=== PATIENT | male | born 1970 | race Two or more races ===

== ENCOUNTER 2016-07-15 18:21 | Emergency (ER) | payer OTHER ==
[2016-07-15 18:27] VITALS: BP 121/94; PULSE 99; TEMP 97.9; BMI 38.2
[2016-07-15] MEDS ORDERED: SODIUM CHLORIDE 1,000 ML IV STA (20:19)
--- NOTE | 2016-07-15 20:19 | PDOC ---
History of Present Illness - History of Present Illness Initial Comments: 07/15/16 21:26 The patient is a 46 year old male, with a significant past medical history of Type II Diabetes on metformin BID and Victoza (diagnosed in 2007) and herniated discs, who presents to the emergency department sent by PCP with cough, low- grade fever, laryngitis, and upper respiratory infection for a week. He states he was seen by Dr. Newell four days ago in the office and was treated with a Z- pack which he reports finishing today with little to no relief of symptoms. He also reports getting a call from Dr. Newell today about his lab results because his HgbA1C was noted to be 11. The patient states he eats what he likes and does not monitor his sugars. He denies chest pain, shortness of breath, headache and dizziness. He denies nausea, vomit, diarrhea, constipation. He denies dysuria, frequency, urgency and hematuria. PCP - Dr. Dixie Newell <Ofelia Cordova - Last Filed: 07/15/16 21:26> <Yamel Casillas - Last Filed: 07/16/16 01:20> - General Chief Complaint: Blood Sugar Problem Stated Complaint: PCP SENT/R/O KETOACIDOSIS Past History <Ofelia Cordova - Last Filed: 07/15/16 21:26> - Past Medical History Diabetes: Yes (niddm) - Surgical History Appendectomy: Yes - Psycho/Social/Smoking Cessation Hx Anxiety: No Suicidal Ideation: No Smoking History: Never smoked Have you smoked in the past 12 months: No Information on smoking cessation initiated: No Hx Alcohol Use: No Drug/Substance Use Hx: No Substance Use Type: None <Yamel Casillas - Last Filed: 07/16/16 01:20> - Past Medical History Allergies/Adverse Reactions: Allergies Allergy/AdvReac Type Severity Reaction Status Date / Time No Known Allergies Allergy Verified 07/15/16 18:23 Review of Systems - Review of Systems Able to Perform ROS?: Yes Comments:: 07/15/16 21:26 CONSTITUTIONAL: (+) low-grade fever. Absent: chills, diaphoresis, generalized weakness, malaise , loss of appetite HEENT: (+) nasal congestion, Absent: rhinorrhea, throat pain, throat swelling, difficulty swallowing, mouth swelling, ear pain, eye pain, visual Changes CARDIOVASCULAR: Absent: chest pain, syncope, palpitations, irregular heart rate, lightheadedness , peripheral edema RESPIRATORY: (+) dry cough, Absent: shortness of breath, dyspnea with exertion, orthopnea, wheezing, stridor, hemoptysis GASTROINTESTINAL: Absent: abdominal pain, abdominal distension, nausea, vomiting, diarrhea, constipation, melena, hematochezia GENITOURINARY: Absent: dysuria, frequency, urgency, hesitancy, hematuria, flank pain, genital pain MUSCULOSKELETAL: Absent: myalgia, arthralgia, joint swelling SKIN: Absent: rash, itching, pallor HEMATOLOGIC/IMMUNOLOGIC: Absent: easy bleeding, easy bruising, lymphadenopathy, frequent infections ENDOCRINE: Absent: unexplained weight gain, unexplained weight loss, heat intolerance, cold intolerance NEUROLOGIC: Absent: headache, focal weakness or paresthesias, dizziness, unsteady gait, seizure, mental status changes, bladder or bowel incontinence PSYCHIATRIC: Absent: anxiety, depression, suicidal or homicidal ideation, hallucinations. <Ofelia Cordova - Last Filed: 07/15/16 21:26> *Physical Exam - Vital Signs Last Vital Signs Temp Pulse Resp BP Pulse Ox 97.9 F 99 H 18 121/94 100 07/15/16 18:24 07/15/16 18:24 07/15/16 18:24 07/15/16 18:24 07/15/16 18:24 - Physical Exam Comments: 07/15/16 21:27 GENERAL: (+) overweight, well nourished. Awake and alert. No acute distress. HEENT: Normocephalic, atraumatic. PERRLA, EOMI. No conjunctival pallor. Sclera are non- icteric. Moist mucous membranes. Oropharynx is clear. NECK: Supple. Full ROM. No JVD. Carotid pulses 2+ and symmetric, without bruits. No thyromegaly. No lymphadenopathy. CARDIOVASCULAR: Regular rate and rhythm. No murmurs, rubs, or gallops. Distal pulses are 2+ and symmetric. PULMONARY: No evidence of respiratory distress. Lungs clear to auscultation bilaterally. No wheezing, rales or rhonchi. ABDOMINAL: Soft. Non-tender. Non-distended. No rebound or guarding. No organomegaly. Normoactive bowel sounds. MUSCULOSKELETAL Normal range of motion at all joints. No bony deformities or tenderness. No CVA tenderness. EXTREMITIES: No cyanosis. No clubbing. No edema. No calf tenderness. SKIN: Warm and dry. Normal capillary refill. No rashes. No jaundice. NEUROLOGICAL: Alert, awake, appropriate. Cranial nerves 2-12 intact. Normoreflexic in the upper and lower extremities. Normal speech. Toes are down-going bilaterally. Gait is normal without ataxia. PSYCHIATRIC: Cooperative. Good eye contact. Appropriate mood and affect. <Ofelia Cordova - Last Filed: 07/15/16 21:26> - Vital Signs Last Vital Signs Temp Pulse Resp BP Pulse Ox 97.9 F 99 H 18 121/94 100 07/15/16 18:24 07/15/16 18:24 07/15/16 18:24 07/15/16 18:24 07/15/16 18:24 <Yamel Casillas - Last Filed: 07/16/16 01:20> ED Treatment Course - LABORATORY CBC & Chemistry Diagram: 07/15/16 21:00 07/15/16 21:00 - ADDITIONAL ORDERS Additional order review: Laboratory Results 07/15/16 21:10 Anticoagulation Therapy Y Puncture Site Right radial ABG pH 7.41 ABG pCO2 at Pt Temp 34.6 L ABG pO2 at Pt Temp 109.0 H ABG HCO3 21.8 L ABG O2 Sat (Measured) 98.2 ABG O2 Content 21.7 ABG Base Excess -1.5 Akil Test Positive O2 Delivery Device Y Oxygen Flow Rate Y Vent Mode Y Vent Rate Y Mechanical Rate Y PEEP 0.0 Pressure Support Vent Y 07/15/16 21:00 RBC 5.56 MCV 84.4 MCHC 34.8 RDW 13.5 MPV 8.8 Neutrophils % 48.8 Lymphocytes % 41.5 H Monocytes % 7.8 Eosinophils % 1.1 Basophils % 0.8 - Medications Given in the ED: ED Medications Discontinued Medications Generic Name Dose Route Start Last Admin Trade Name Freq PRN Reason Stop Dose Admin Sodium Chloride 1,000 mls @ 1,000 mls/hr 07/15/16 20:19 07/15/16 21:03 Normal Saline - IV 07/15/16 21:18 1,000 mls/hr .Q1H STA Administration <Ofelia Cordova - Last Filed: 07/15/16 21:26> - LABORATORY CBC & Chemistry Diagram: 07/15/16 21:00 07/15/16 21:57 <Yamel Casillas - Last Filed: 07/16/16 01:20> Medical Decision Making - Medical Decision Making 07/16/16 01:16 46-year-old male who is diabetic was referred to the emergency department because his hemoglobin A1c was 11 and his primary care physician was concerned he might be in DKA However, the patient has not had any significant nausea or vomiting. He didn't did note that he had some increased urination. He has no increased respiratory rate. He has no fever, chills, or cough Glucose is 169 Acetone negative Troponin is negative and is a normal EKG with no signs of ischemia pt admitted that since being diagnosed with diabetes 2007, he hasn't changed his diet in any way and he eats want her wants -he never does a fingerstick to see what his glucoses. pt discharged home and I discussed the lab results with Dr Armen Granado <Yamel Casillas - Last Filed: 07/16/16 01:20> *DC/Admit/Observation/Transfer - Attestations Scribe Attestion: 07/15/16 21:28 Documentation prepared by Ofelia Cordova, acting as medical concierge for Yamel Casillas MD <Ofelia Cordova - Last Filed: 07/15/16 21:26> <Yamel Casillas - Last Filed: 07/16/16 01:20> Diagnosis at time of Disposition: Hyperglycemia due to type 2 diabetes mellitus Qualifiers: Diabetes mellitus senior care insulin use: without senior care use Qualified Code(s ): E11.65 - Type 2 diabetes mellitus with hyperglycemia - Discharge Dispostion Disposition: HOME Condition at time of disposition: Stable - Referrals Referrals: Dixie Newell MD [Primary Care Provider] - - Patient Instructions Printed Discharge Instructions: DI for Hyperglycemia -- Adult, DI for Diabetes Type 2 Additional Instructions: Please follow up with your physician Please check your glucose on a daily basis Follow a diabetic diet
[2016-07-15 21:13] LABS: BASOPHIL 0.8 % (0-2.0); EOSINOPHIL 1.1 % (0-4.5); MCH 29.4 pg (25.7-33.7); MCHC 34.8 g/dl (32.0-35.9); MEAN CELL VOLUME 84.4 fl (80-96); MEAN PLT VOLUME 8.8 fl (7.5-11.1); NEUTROPHILS 48.8 % (42.8-82.8); PLATELET COUNT 329 K/MM3 (134-434); RDW 13.5 % (11.9-15.9); WHITE BLOOD COUNT 7.6 K/mm3 (4.0-10.0)
[2016-07-15 21:17] LABS: ARTERIAL BLOOD GAS pH 7.41 (7.35-7.45)
[2016-07-15 21:18] LABS: ALLENS TEST POSITIVE; ART PUNCT SITE RIGHT RADIAL; ARTERIAL BLD GAS O2 SATURATION 98.2 % (90-98.9); ARTERIAL BLOOD GAS BASE EXCESS -1.5 meq/l (-2-2); ARTERIAL BLOOD GAS HCO3 21.8 meq/L (22-26); PT. ON O2? NO
[2016-07-15 22:49] LABS: URINE APPEARANCE CLEAR; URINE BILIRUBIN NEGATIVE (NEGATIVE); URINE BLOOD NEGATIVE (NEGATIVE); URINE COLOR YELLOW; URINE GLUCOSE (UA) 1+ (NEGATIVE); URINE KETONE 1+ (NEGATIVE); URINE LEUK ESTERASE NEGATIVE (NEGATIVE); URINE NITRITE NEGATIVE (NEGATIVE); URINE UROBILINOGEN NEGATIVE E.U./dl (0.2-1.0)
[2016-07-15 22:50] LABS: ALK PHOS 69 U/L (45-117); ANION GAP 9 (8-16); BILIRUBIN,TOTAL 0.7 mg/dL (0.2-1.0); CALCIUM 9.2 mg/dL (8.5-10.1); CO2 27 mmol/L (21-32); CREATININE 0.8 mg/dL (0.7-1.3); GLUCOSE,RANDOM 169 mg/dL (74-106); SGOT/AST 49 U/L (15-37); SGPT/ALT 102 U/L (12-78); TOT PROT 7.5 g/dl (6.4-8.2)
[2016-07-15 22:52] LABS: URINE PROTEIN 2+ (NEGATIVE)
[2016-07-15 22:55] LABS: URINE HYALINE CAST 1 /lpf; URINE MUCUS RARE; URINE RBC 1 /hpf (0-3); URINE WBC 2 /hpf (3-5)
[2016-07-16 00:04] LABS: TROPONIN I < 0.02 ng/ml (0.00-0.05)
--- NOTE | 2016-07-16 13:41 | EKG ---
Test Reason : Blood Pressure : / mmHG Vent. Rate : 087 BPM Atrial Rate : 087 BPM P-R Int : 162 ms QRS Dur : 074 ms QT Int : 376 ms P-R-T Axes : 053 000 009 degrees QTc Int : 452 ms NORMAL SINUS RHYTHM MINIMAL VOLTAGE CRITERIA FOR LVH, MAY BE NORMAL VARIANT BORDERLINE ECG NO PREVIOUS ECGS AVAILABLE Confirmed by NORBERTO ROCK MD ([id number]) on 07/16/2016 1:41:22 PM Referred By: Confirmed By:NORBERTO ROCK MD
== END 2016-07-16 00:32 | disposition home or self-care (01) ==
LOC: JER 18:21
PROC: 3E0337Z Introduction of Electrolytic and Water Balance Substance into Peripheral Vein, Percutaneous Approach (ICD-10-PCS; principal; 2016-07-15)
DX: E11.65 Type 2 diabetes mellitus with hyperglycemia (principal); Z79.84 Long term (current) use of oral hypoglycemic drugs; J06.9 Acute upper respiratory infection, unspecified
CPT/HCPCS: 36415; 36600; 80053; 81003; 81015; 82009; 82550; 82553; 82803; 84484; 85025; 93005; 93010; 96360; 99282-25